=== PATIENT | female | born 2000 | race Caucasian/White ===

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

== ENCOUNTER → 2022-01-03 | Outpatient (CLI) | payer BC ==
--- NOTE | 2022-01-03 09:29 | USB ---
Reason for Exam: Clinical finding. Indicated Problems: Palpable abnormality of the left side. Findings: The whole breast of the left breast, the axilla of the left breast and the retroareolar of the left breast were scanned. Finding 1: Lymph Nodes - Intramammary findings. Laterality: Left. Size 18 x 5 x 17 mm. Region: Axilla. Finding 2: Lymph Nodes - Intramammary findings. Laterality: Left. Size 24 x 11 x 17 mm. Region: Axilla. . No solid or cystic lesion is seen within the breast. No duct ectasia. A couple mildly enlarged lymph nodes within the left axilla are noted. These demonstrate hyperemia with cortical thickening up to 6 mm. Overall Assessment: Probably benign, BI-RAD 3 Management: Clinical Correlation Diagnostic Breast Ultrasound of the left breast in 3 months. The thickened and mildly enlarged left axillary lymph nodes are probably reactive/post inflammatory. Clinical follow-up recommended to ensure resolution. Ultrasound follow-up in 3 months. If the lymph nodes persist or enlarge, tissue sampling can be considered.
== END | disposition home or self-care (01) ==
LOC: RADUSWWP 08:36
PROVIDERS: ATTEND Family Medicine
DX: N63.20 Unspecified lump in the left breast, unspecified quadrant (principal); R59.0 Localized enlarged lymph nodes

== ENCOUNTER 2022-04-15 15:27 | Emergency (ER) | payer BC, OTHER ==
[2022-04-15 15:35] VITALS: BP 104/67; PULSE 111; RESP 20; TEMP 97.6
--- NOTE | 2022-04-15 16:06 | ED ---
Recheck HPI - General Chief Complaint: Recheck/Abnormal Lab/Rx Stated Complaint: clogged feeding tube Time Seen by Provider: 04/15/22 15:50 Source: patient, RN notes reviewed, old records reviewed Mode of arrival: ambulatory Limitations: no limitations - History of Present Illness Initial Comments: This is a cachectic 22-year-old female, alert and oriented 4, presents to the emergency room with family complaining of a clogged feeding tube since 8 AM this morning. They have tried hot water and Coca-Cola with no relief. She denies any fevers, no nausea vomiting or diarrhea. No abdominal pain. No difficulty breathing. 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 She is on lung transplant list. She does go to the [facility] every 6-8 weeks which is where her feeding tube was placed. She is due to go back May 01. She is taking oral food and fluids. Feeding tube was placed for supplemental caloric intake. -: hour(s) (8) Initial Visit For: other (Clogged coretrak feeding tube) Associated Symptoms: none - Related Data Home Medications Medication Instructions Recorded Confirmed Digoxin [Lanoxin] 125 mcg PO DAILY 09/25/15 07/27/21 Veletri 74 ml IV CONTINUOUS 05/11/19 07/27/21 Bosentan 125 mg PO BID 04/05/20 07/27/21 tadalafiL [Alyq] 40 mg PO DAILY 04/05/20 07/27/21 Ferrous Sulfate [Feosol] 325 mg PO BID 04/06/20 07/27/21 Cyproheptadine [Cyproheptadine HCl] 4 mg PO BID 06/29/21 07/27/21 Furosemide [Lasix] 40 mg PO DIRECTED 06/29/21 07/27/21 Furosemide [Lasix] 40 mg PO DAILY 06/29/21 07/27/21 Pantoprazole [Protonix] 40 mg PO BID 06/29/21 07/27/21 acetaZOLAMIDE [Diamox] 500 mg PO BID 06/29/21 07/27/21 Ondansetron Odt [Zofran Odt] 4 mg PO Q8H PRN 07/27/21 07/27/21 Spironolactone 100 mg PO DAILY 07/27/21 07/27/21 Allergies Allergy/AdvReac Type Severity Reaction Status Date / Time chlorhexidine Allergy Unknown Verified 04/15/22 15:35 Sulfa (Sulfonamide Allergy Rash/Hives Verified 04/15/22 15:35 Antibiotics) sulfamethoxazole Allergy Rash/Hives Verified 04/15/22 15:35 [From Bactrim] trimethoprim [From Bactrim] Allergy Rash/Hives Verified 04/15/22 15:35 Review of Systems ROS Statement: Those systems with pertinent positive or pertinent negative responses have been documented in the HPI. ROS Other: All systems not noted in ROS Statement are negative. Past Medical History Past Medical History: Hypertension Additional Past Medical History / Comment(s): Idiopathic pulmonary arterial hypertension, juvenile rheumatoid arthritis, history of methotrexate use, chronic hypoxic respiratory failure, chronic anticoagulation, History of Any Multi-Drug Resistant Organisms: None Reported Past Surgical History: Heart Catheterization Additional Past Surgical History / Comment(s): heart cath, place in [place] in December of 2017 mcgarry shunt, left chest wall center line, Past Anesthesia/Blood Transfusion Reactions: Postoperative Nausea & Vomiting (PONV) Past Psychological History: No Psychological Hx Reported Smoking Status: Never smoker Past Alcohol Use History: None Reported Past Drug Use History: None Reported - Past Family History Father Family Medical History: Hypertension Additional Family Medical History / Comment(s): grandpa- had a CABG Mother Additional Family Medical History / Comment(s): ITP blood disorder General Exam Limitations: no limitations General appearance: alert, in no apparent distress Head exam: Present: atraumatic Eye exam: Absent: scleral icterus, conjunctival injection ENT exam: Present: mucous membranes moist, other (Cortrak feeding tube left nostril) Neck exam: Present: full ROM. Absent: tenderness, meningismus Respiratory exam: Absent: respiratory distress, accessory muscle use Cardiovascular Exam: Present: tachycardia GI/Abdominal exam: Present: distended. Absent: tenderness, guarding, rebound Neurological exam: Present: alert, oriented X3 Psychiatric exam: Present: normal affect, normal mood Skin exam: Present: warm, dry. Absent: cyanosis, diaphoretic Course Vital Signs 04/15/22 15:31 Temperature 97.6 F Pulse Rate 111 H Respiratory 20 Rate Blood Pressure 104/67 O2 Sat by Pulse 95 Oximetry - Reevaluation(s) Reevaluation #1: 04/15/22 17:26 I did speak with [facility] request of the patient and Dr. Ocampo and they are unable to accommodate replacement of her cortrak feeding tube. Time: 17:26 Medical Decision Making - Medical Decision Making Patient has a history of idiopathic pulmonary arterial hypertension and juvenile rheumatoid arthritis, she had a mcgarry shunt placed for pulmonary hypertension. She is a patient at the [facility] where they placed a Cortrak enteral feeding tube left nostril to improve nutrition and caloric intake. Her tube has been clogged since 8:00 this morning and they have been unable to flush the tube. Attempts to flush the tube in the emergency room were unsuccessful. X-ray shows tube coiled within the stomach or within the duodenum. I did speak with Dr. Ocampo who recommended contacting [facility] to see if they could accommodate patient for a new tube placement. I did contact [facility] who states that they would recommend an NG tube placement if patient needs the tube and follow-up with [facility]. She was given the option to have the tube removed since she is taking oral foods and fluids. After much discussion patient and mother decided to have the feeding tube removed. Tube was removed without any complications. She was offered a NGT and declined at this time Patient will be discharged home and directed to follow up with her primary care doctor at [facility] tomorrow morning. Case discussed with Dr. Layton Disposition Clinical Impression: Clogged feeding tube Disposition: HOME SELF-CARE Condition: Good Additional Instructions: Follow-up with [facility] and primary care doctor tomorrow regarding replacement of your feeding tube. Return to emergency room with any new or concerning symptoms. Is patient prescribed a controlled substance at d/c from ED?: No Referrals: Jose C Lunsford [Primary Care Provider] - 1-2 days Time of Disposition: 17:29
--- NOTE | 2022-04-15 16:26 | XR ---
EXAMINATION TYPE: XR KUB DATE OF EXAM: 04/15/2022 COMPARISON: 07/27/2021 HISTORY: Tube placement TECHNIQUE: Single supine KUB image of the abdomen is obtained FINDINGS: NG tube is noted with its distal tip overlying the left midabdomen. This could be coiled within the s tomach or reside within the duodenum. No convincing evidence for pneumoperitoneum. There is evidence of splenomegaly. Bird's nest filter is unchanged from prior study. No unusual calcifications. The lung bases are clear. The osseous structures are intact. IMPRESSION: 1. NG tube as noted. Bowel gas pattern is nonspecific.
== END 2022-04-15 17:50 | disposition home or self-care (01) ==
LOC: EC 15:27
DX: K94.23 Gastrostomy malfunction (principal); I10 Essential (primary) hypertension; Z88.2 Allergy status to sulfonamides; Z88.8 Allergy status to other drugs, medicaments and biological substances; Z79.899 Other long term (current) drug therapy
CPT/HCPCS: 74018; 99282; 99283

== ENCOUNTER → 2022-08-06 | Outpatient (CLI) | payer OTHER ==
[2022-08-06 18:51] LABS: African American GFR (CKD) 143.6 (60.0-200.0); Albumin 4.9 g/dL (3.8-4.9); Albumin/Globulin Ratio 2.25 (1.60-3.17); Anion Gap 12.6 mmol/L (10.00-18.00); BUN/Creat Ratio 49.86 Ratio (12.00-20.00); Blood Urea Nitrogen 35.1 mg/dL (9.0-27.0); Calcium 9.8 mg/dL (8.7-10.3); Globulin 2.2 g/dL (1.6-3.3); Non-African American GFR(CKD) 123.9 (60.0-200.0); Potassium 3.6 mmol/L (3.5-5.5); Total Bilirubin 0.4 mg/dL (0.30-1.20); Total Protein 7.1 g/dL (6.2-8.2)
== END | disposition home or self-care (01) ==
LOC: LABWHC1 11:37
PROVIDERS: ATTEND Clinical Nurse Specialist Adult Health
DX: I50.810 Right heart failure, unspecified (principal); I27.0 Primary pulmonary hypertension
CPT/HCPCS: 36415; 80053

== ENCOUNTER → 2022-08-29 | Outpatient (CLI) | payer BC, OTHER ==
[2022-08-29 23:32] LABS: Basophils # (A) 0.07 X 10*3/uL (0.00-0.10); Basophils % (A) 1.3 %; Eosinophils # (A) 0.04 X 10*3/uL (0.04-0.35); Eosinophils % (A) 0.8 %; HCT 50.4 % (37.2-46.3); HGB 15.3 g/dL (12.0-15.0); Immature Grans, Automated 0.6 %; Lymphocytes # (A) 0.86 X 10*3/uL (0.90-5.00); Lymphocytes % (A) 16.2 %; MCH 26.7 pg (27.0-32.0); MCHC 30.4 g/dL (32.0-37.0); MCV 88.1 fL (80.0-97.0); Mean Platelet Volume 10.5 fL (9.5-12.2); Monocytes # (A) 0.24 X 10*3/uL (0.20-1.00); Monocytes % (A) 4.5 %; NRBC Per 100 WBC 0 /100 WBCS (0.0-0.0); Neutrophils # (A) 4.07 X 10*3/uL (1.80-7.70); Neutrophils % (A) 76.6 %; Platelet Count 81 X 10*3/uL (140-440); RBC 5.72 X 10*6/uL (4.10-5.20); RDW 17.4 % (11.5-14.5); WBC 5.31 X 10*3/uL (4.50-10.00)
[2022-08-29 23:33] LABS: Anisocytosis (M) 2+; Elliptocytes 2+
== END | disposition home or self-care (01) ==
LOC: LABWHC1 14:00
PROVIDERS: ATTEND Clinical Nurse Specialist Adult Health
DX: I27.21 Secondary pulmonary arterial hypertension (principal); R06.02 Shortness of breath
CPT/HCPCS: 36415; 85025

== ENCOUNTER → 2023-03-06 | Outpatient (CLI) | payer BC ==
--- NOTE | 2023-03-06 16:02 | US ---
EXAMINATION TYPE: US venous doppler duplex LE RT DATE OF EXAM: 03/06/2023 3:55 PM COMPARISON: NONE CLINICAL INDICATION: Female, 23 years old with history of M79.604 PAIN IN RIGHT LEG; Right calf pain. No injury. No swelling. SIDE PERFORMED: Right TECHNIQUE: The lower extremity deep venous system is examined utilizing real time linear array sonog adam with graded compression, doppler sonography and color-flow sonography. VESSELS IMAGED: Common Femoral Vein Deep Femoral Vein Greater Saphenous Vein * Femoral Vein Popliteal Vein Small Saphenous Vein * Proximal Calf Veins (* superficial vessels) Grayscale, color doppler, spectral doppler imaging performed of the deep veins of the right lower ext remity. There is normal flow, compressibility, vascular waveforms. Right Leg: Negative for DVT IMPRESSION: No ultrasound evidence for deep venous thrombosis of the right lower extremity.
== END | disposition home or self-care (01) ==
LOC: RADUSWWP 15:31
PROVIDERS: ATTEND Clinical Nurse Specialist Adult Health
DX: M79.604 Pain in right leg (principal)

== ENCOUNTER 2023-12-07 19:44 | Emergency (ER) | payer BC ==
[2023-12-07] MEDS: SODIUM CHLORIDE 0.9% 250 ML IV SCH (20:32)
[2023-12-07 20:42] LABS: VBG PH 7.34 (7.31-7.41)
--- NOTE | 2023-12-07 20:44 | ED ---
General Adult HPI - General Chief complaint: Nausea/Vomiting/Diarrhea Stated complaint: Pulmonary Hypertension, Vomiting Time Seen by Provider: 12/07/23 20:03 Source: family, RN notes reviewed, old records reviewed Mode of arrival: wheelchair Limitations: no limitations - History of Present Illness Initial comments: 23-year-old female with pulmonary hypertension who follows at [facility] presenting with nausea vomiting and diarrhea. Patient is on multiple medications including continuous infusion of Ruba for pulmonary hypertension. She is on digoxin, hydrocortisone, Lasix, spironolactone. Patient had gone out with friends yesterday evening had 1 glass of wine and 3 shots of alcohol. She developed symptoms over the past 12 hours including 4 total episodes of vomiting and 4 episodes of diarrhea. Mother had been monitoring blood pressure at home and had some lower than normal readings. Heart rate was 140 at home. Mother had given an additional dose of hydrocortisone at home. - Related Data Home Medications Medication Instructions Recorded Confirmed Digoxin [Lanoxin] 125 mcg PO DAILY 09/25/15 07/27/21 Veletri 74 ml IV CONTINUOUS 05/11/19 07/27/21 Bosentan 125 mg PO BID 04/05/20 07/27/21 tadalafiL [Alyq] 40 mg PO DAILY 04/05/20 07/27/21 Ferrous Sulfate [Feosol] 325 mg PO BID 04/06/20 07/27/21 Cyproheptadine [Cyproheptadine HCl] 4 mg PO BID 06/29/21 07/27/21 Furosemide [Lasix] 40 mg PO DIRECTED 06/29/21 07/27/21 Furosemide [Lasix] 40 mg PO DAILY 06/29/21 07/27/21 Pantoprazole [Protonix] 40 mg PO BID 06/29/21 07/27/21 acetaZOLAMIDE [Diamox] 500 mg PO BID 06/29/21 07/27/21 Ondansetron Odt [Zofran Odt] 4 mg PO Q8H PRN 07/27/21 07/27/21 Spironolactone 100 mg PO DAILY 07/27/21 07/27/21 Allergies Allergy/AdvReac Type Severity Reaction Status Date / Time chlorhexidine Allergy Unknown Verified 12/07/23 19:48 Sulfa (Sulfonamide Allergy Rash/Hives Verified 12/07/23 19:48 Antibiotics) sulfamethoxazole Allergy Rash/Hives Verified 12/07/23 19:48 [From Bactrim] trimethoprim [From Bactrim] Allergy Rash/Hives Verified 12/07/23 19:48 Review of Systems ROS Statement: Those systems with pertinent positive or pertinent negative responses have been documented in the HPI. ROS Other: All systems not noted in ROS Statement are negative. Past Medical History Past Medical History: Hypertension Additional Past Medical History / Comment(s): Idiopathic pulmonary arterial hypertension, juvenile rheumatoid arthritis, history of methotrexate use, chronic hypoxic respiratory failure, chronic anticoagulation, History of Any Multi-Drug Resistant Organisms: None Reported Past Surgical History: Heart Catheterization Additional Past Surgical History / Comment(s): heart cath, place in [place] in December of 2017 mcgarry shunt, left chest wall center line, Past Anesthesia/Blood Transfusion Reactions: Postoperative Nausea & Vomiting (PONV) Past Psychological History: No Psychological Hx Reported Smoking Status: Never smoker Past Alcohol Use History: Rare Past Drug Use History: None Reported - Past Family History Father Family Medical History: Hypertension Additional Family Medical History / Comment(s): grandpa- had a CABG Mother Additional Family Medical History / Comment(s): ITP blood disorder General Exam Limitations: no limitations General appearance: lethargic Head exam: Present: atraumatic, normocephalic Eye exam: Present: normal appearance, PERRL ENT exam: Present: mucous membranes dry Neck exam: Present: normal inspection. Absent: tenderness, meningismus Respiratory exam: Present: decreased breath sounds, other (Mild tachypnea). Absent: respiratory distress, rales, rhonchi Cardiovascular Exam: Present: normal rhythm, tachycardia GI/Abdominal exam: Present: soft. Absent: distended, tenderness, guarding, rebound Extremities exam: Present: normal inspection, normal capillary refill. Absent: pedal edema Neurological exam: Present: alert. Absent: motor sensory deficit Skin exam: Present: warm, dry, intact. Absent: cyanosis, diaphoretic Course Vital Signs 12/07/23 12/07/23 12/07/23 19:46 20:12 21:15 Temperature 100.2 F H Pulse Rate 134 H 134 H 134 H Respiratory 20 16 30 H Rate Blood Pressure 87/54 93/54 80/48 O2 Sat by Pulse 95 100 94 L Oximetry 12/07/23 12/07/23 12/07/23 21:52 22:00 22:28 Temperature 99.2 F Pulse Rate 133 H 122 H 128 H Respiratory 25 H 24 28 H Rate Blood Pressure 74/51 101/55 98/54 O2 Sat by Pulse 95 95 90 L Oximetry 12/07/23 12/07/23 12/08/23 23:00 23:51 00:15 Temperature 99.0 F Pulse Rate 130 H 126 H 124 H Respiratory 33 H 26 H 30 H Rate Blood Pressure 92/54 99/51 81/47 O2 Sat by Pulse 92 L 95 96 Oximetry 12/08/23 01:30 Temperature Pulse Rate 130 H Respiratory 26 H Rate Blood Pressure 101/55 O2 Sat by Pulse 92 L Oximetry - Reevaluation(s) Reevaluation #1: 12/07/23 2100 I was able to discuss care of this patient with the support merchandiser from [facility] Dr. Woodard who recommends very careful fluid resuscitation, and the cardiothoracic surgeon Dr. Mondragon, who does recommend 500-1,000 cc bolus normal saline. Reevaluation #2: 12/08/23 00:10 Patient accepted to [facility] awaiting bed and transfer. Reevaluation #3: 12/08/23 02:09 Repeat BMP showing improved potassium of 4.0, sodium 128, and calcium is now 6.9 will be given calcium by [facility]. Medical Decision Making - Medical Decision Making Was pt. sent in by a medical professional or institution (, PA, ROD TAPE OPERATOR, urgent care, hospital, or snf...) When possible be specific @ -No Did you speak to anyone other than the patient for history (EMS, parent, family, police, friend...)? What history was obtained from this source @ -Mother and father are able to give a detailed history. Did you review nursing and triage notes (agree or disagree)? Why? @ -I reviewed and agree with nursing and triage notes Were old charts reviewed (outside hosp., previous admission, EMS record, old EKG, old radiological studies, urgent care reports/EKG's, snf records)? Report findings @ -No old charts were reviewed Differential Diagnosis nausea vomiting, dehydration, upper respiratory infection, pneumonia, pulmonary edema. EKG interpreted by me (3pts min.). @ -[Sinus tachycardia, incomplete right bundle branch block, right ventricular hypertrophy, rate of 130, IN interval 140, QRS duration 97, QTc [address] segment changes X-rays interpreted by me (1pt min.). @2 view chest x-ray showing cardiomegaly which is improved from prior, she has some persistent airspace opacities which are consistent when compared to prior x-rays. No consolidated pneumonia, no pneumothorax. CT interpreted by me (1pt min.). @ -None done U/S interpreted by me (1pt. min.). @ -None done What testing was considered but not performed or refused? (CT, X-rays, U/S, labs)? Why? @ -None What meds were considered but not given or refused? Why? @ -None Did you discuss the management of the patient with other professionals (professionals i.e. , PA, ROD TAPE OPERATOR, lab, RT, psych nurse, social service liaison, intellectual property lawyer, teacher, loan service officer, caseworker protective services)? Give summary @ -Case discussed with the support merchandiser from [facility] as well as the patient's cardiothoracic surgeon DR. Mondragon, who does recommend fluid resuscitation and transfer if needed. I did discuss case with the transfer team from [facility], patient has been accepted to the MICU, accepting physician Dr. Deal. Was smoking cessation discussed for >3mins.? @ -No Was critical care preformed (if so, how long)? @ -[yes 95 min Were there social determinants of health that impacted care today? How? (Homelessness, low income, unemployed, alcoholism, drug addiction, transportation, low edu. Level, literacy, decrease access to med. care, long term, rehab)? @ -No Was there de-escalation of care discussed even if they declined (Discuss DNR or withdrawal of care, Hospice)? DNR status @ -No What co-morbidities impacted this encounter? (DM, HTN, Smoking, COPD, CAD, Cancer, CVA, ARF, Chemo, Hep., AIDS, mental health diagnosis, sleep apnea, morbid obesity)? @ -Pulmonary hypertension Was patient admitted / discharged? Hospital course, mention meds given and route, prescriptions, significant lab abnormalities, going to OR and other pertinent info. @ -23-year-old female history of pulmonary hypertension presenting with nausea vomiting diarrhea. Patient is tachycardic, tachypneic, hypotensive upon arrival. Initial oxygenation is stable without need for supplemental oxygen. I did contact the [facility] at the onset of care regarding the management of this patient. Patient is given normal saline boluses in 250 cc increments. She is given oral and IV potassium replacement for potassium of 3.0. She has no further vomiting while in the emergency department. She does have a increased need of oxygen requiring 2 L through nasal cannula for oxygenation around 89%. Chest x-ray shows cardiomegaly with some chronic appearing airspace opacities similar to prior, no rani CHF. Patient's white blood cell count is normal. Her hemoglobin is 19.2 with a baseline around 16. She has a sodium 132, potassium 3.0, creatinine 1.53 with a baseline around 1. She has normal lactic. Urinalysis has been ordered and has not been obtained currently. Given the complexity of her care and only slightly improved heart rate and blood pressure with fluids and need for supplemental oxygen I do feel this patient will be best served by transfer to [facility] where she receives her care. Patient transferred by flight team to [facility] MICU. Undiagnosed new problem with uncertain prognosis? @ -No Drug Therapy requiring intensive monitoring for toxicity (Heparin, Nitro, Insulin, Cardizem)? @ -No Were any procedures done? @ -No Diagnosis/symptom? @ -[Hypovolemia, hypotension, pulmonary hypertension, hypokalemia, NARCISA Acute, or Chronic, or Acute on Chronic? @Acute Uncomplicated (without systemic symptoms) or Complicated (systemic symptoms)? @ -Complicated Side effects of treatment? @ -No Exacerbation, Progression, or Severe Exacerbation? @ -No Poses a threat to life or bodily function? How? (Chest pain, USA, MT, pneumonia, PE, COPD, DKA, ARF, appy, cholecystitis, CVA, Diverticulitis, Homicidal, Suicidal, threat to staff... and all critical care pts) @ -Yes, hypovolemic shock, cardiogenic shock - Lab Data Result diagrams: 12/08/23 01:35 12/08/23 01:35 Lab Results 12/07/23 12/07/23 12/07/23 Range/Units 20:00 20:00 20:00 WBC 6.1 (3.8-10.6) k/uL RBC 6.49 H (3.80-5.40) m/uL Hgb 19.2 H* (11.4-16.0) gm/dL Hct 55.6 H (34.0-46.0) % MCV 85.7 (80.0-100.0) fL MCH 29.5 (25.0-35.0) pg MCHC 34.5 (31.0-37.0) g/dL RDW 17.5 H (11.5-15.5) % Plt Count 44 L (150-450) k/uL MPV 10.1 Neutrophils % % Neutrophils % (Manual) 54 % Band Neuts % (Manual) 16 % Lymphocytes % % Lymphocytes % (Manual) 27 % Monocytes % % Monocytes % (Manual) 3 % Eosinophils % % Eosinophils % (Manual) 1 % Basophils % % Basophils % (Manual) 1 % Neutrophils # (1.3-7.7) k/uL Neutrophils # (Manual) 4.20 (1.3-7.7) k/uL Lymphocytes # (1.0-4.8) k/uL Lymphocytes # (Manual) 1.65 (1.0-4.8) k/uL Monocytes # (0-1.0) k/uL Monocytes # (Manual) 0.18 (0-1.0) k/uL Eosinophils # (0-0.7) k/uL Eosinophils # (Manual) 0.06 (0-0.7) k/uL Basophils # (0-0.2) k/uL Basophils # (Manual) 0.06 (0-0.2) k/uL Nucleated RBCs 4 H (0-0) /100 WBC Manual Slide Review Performed Anisocytosis Slight VBG pH (7.31-7.41) VBG pCO2 (37-51) mmHg VBG HCO3 (24-28) mmol/L Sodium 132 L (137-145) mmol/L Potassium 3.0 L (3.5-5.1) mmol/L Chloride 97 L (98-107) mmol/L Carbon Dioxide 22 (22-30) mmol/L Anion Gap 13 mmol/L BUN 28 H (7-17) mg/dL Creatinine 1.53 H (0.52-1.04) mg/dL Est GFR (CKD-EPI)AfAm 56 (>60 ml/min/1.73 sqM) Est GFR (CKD-EPI)NonAf 48 (>60 ml/min/1.73 sqM) Glucose 84 (74-99) mg/dL Plasma Lactic Acid Bruno 1.3 (0.7-2.0) mmol/L Calcium 7.6 L (8.4-10.2) mg/dL Magnesium 1.6 (1.6-2.3) mg/dL Total Bilirubin 1.0 (0.2-1.3) mg/dL AST 28 (14-36) U/L ALT 15 (4-34) U/L Alkaline Phosphatase 93 (38-126) U/L Total Protein 7.3 (6.3-8.2) g/dL Albumin 4.5 (3.5-5.0) g/dL Influenza Type A (PCR) (Not Detectd) Influenza Type B (PCR) (Not Detectd) RSV (PCR) (Not Detectd) SARS-CoV-2 (PCR) (Not Detectd) 12/07/23 12/07/23 12/08/23 Range/Units 20:15 20:15 01:35 WBC 7.8 (3.8-10.6) k/uL RBC 6.07 H (3.80-5.40) m/uL Hgb 16.6 H (11.4-16.0) gm/dL Hct 52.0 H (34.0-46.0) % MCV 85.7 (80.0-100.0) fL MCH 27.3 (25.0-35.0) pg MCHC 31.8 (31.0-37.0) g/dL RDW 17.2 H (11.5-15.5) % Plt Count 30 L (150-450) k/uL MPV 9.6 Neutrophils % 85 % Neutrophils % (Manual) % Band Neuts % (Manual) % Lymphocytes % 10 % Lymphocytes % (Manual) % Monocytes % 4 % Monocytes % (Manual) % Eosinophils % 0 % Eosinophils % (Manual) % Basophils % 1 % Basophils % (Manual) % Neutrophils # 6.6 (1.3-7.7) k/uL Neutrophils # (Manual) (1.3-7.7) k/uL Lymphocytes # 0.7 L (1.0-4.8) k/uL Lymphocytes # (Manual) (1.0-4.8) k/uL Monocytes # 0.3 (0-1.0) k/uL Monocytes # (Manual) (0-1.0) k/uL Eosinophils # 0.0 (0-0.7) k/uL Eosinophils # (Manual) (0-0.7) k/uL Basophils # 0.1 (0-0.2) k/uL Basophils # (Manual) (0-0.2) k/uL Nucleated RBCs (0-0) /100 WBC Manual Slide Review Anisocytosis Slight VBG pH 7.34 (7.31-7.41) VBG pCO2 46 (37-51) mmHg VBG HCO3 25 (24-28) mmol/L Sodium (137-145) mmol/L Potassium (3.5-5.1) mmol/L Chloride (98-107) mmol/L Carbon Dioxide (22-30) mmol/L Anion Gap mmol/L BUN (7-17) mg/dL Creatinine (0.52-1.04) mg/dL Est GFR (CKD-EPI)AfAm (>60 ml/min/1.73 sqM) Est GFR (CKD-EPI)NonAf (>60 ml/min/1.73 sqM) Glucose (74-99) mg/dL Plasma Lactic Acid Bruno (0.7-2.0) mmol/L Calcium (8.4-10.2) mg/dL Magnesium (1.6-2.3) mg/dL Total Bilirubin (0.2-1.3) mg/dL AST (14-36) U/L ALT (4-34) U/L Alkaline Phosphatase (38-126) U/L Total Protein (6.3-8.2) g/dL Albumin (3.5-5.0) g/dL Influenza Type A (PCR) Not Detected (Not Detectd) Influenza Type B (PCR) Not Detected (Not Detectd) RSV (PCR) Not Detected (Not Detectd) SARS-CoV-2 (PCR) Not Detected (Not Detectd) 12/08/23 Range/Units 01:35 WBC (3.8-10.6) k/uL RBC (3.80-5.40) m/uL Hgb (11.4-16.0) gm/dL Hct (34.0-46.0) % MCV (80.0-100.0) fL MCH (25.0-35.0) pg MCHC (31.0-37.0) g/dL RDW (11.5-15.5) % Plt Count (150-450) k/uL MPV Neutrophils % % Neutrophils % (Manual) % Band Neuts % (Manual) % Lymphocytes % % Lymphocytes % (Manual) % Monocytes % % Monocytes % (Manual) % Eosinophils % % Eosinophils % (Manual) % Basophils % % Basophils % (Manual) % Neutrophils # (1.3-7.7) k/uL Neutrophils # (Manual) (1.3-7.7) k/uL Lymphocytes # (1.0-4.8) k/uL Lymphocytes # (Manual) (1.0-4.8) k/uL Monocytes # (0-1.0) k/uL Monocytes # (Manual) (0-1.0) k/uL Eosinophils # (0-0.7) k/uL Eosinophils # (Manual) (0-0.7) k/uL Basophils # (0-0.2) k/uL Basophils # (Manual) (0-0.2) k/uL Nucleated RBCs (0-0) /100 WBC Manual Slide Review Anisocytosis VBG pH (7.31-7.41) VBG pCO2 (37-51) mmHg VBG HCO3 (24-28) mmol/L Sodium 128 L (137-145) mmol/L Potassium 4.0 (3.5-5.1) mmol/L Chloride 101 (98-107) mmol/L Carbon Dioxide 14 L (22-30) mmol/L Anion Gap 13 mmol/L BUN 31 H (7-17) mg/dL Creatinine 1.35 H (0.52-1.04) mg/dL Est GFR (CKD-EPI)AfAm 65 (>60 ml/min/1.73 sqM) Est GFR (CKD-EPI)NonAf 56 (>60 ml/min/1.73 sqM) Glucose 97 (74-99) mg/dL Plasma Lactic Acid Bruno (0.7-2.0) mmol/L Calcium 6.9 L (8.4-10.2) mg/dL Magnesium (1.6-2.3) mg/dL Total Bilirubin (0.2-1.3) mg/dL AST (14-36) U/L ALT (4-34) U/L Alkaline Phosphatase (38-126) U/L Total Protein (6.3-8.2) g/dL Albumin (3.5-5.0) g/dL Influenza Type A (PCR) (Not Detectd) Influenza Type B (PCR) (Not Detectd) RSV (PCR) (Not Detectd) SARS-CoV-2 (PCR) (Not Detectd) Critical Care Time Critical Care Time: Yes Total Critical Care Time: 95 Disposition Clinical Impression: Pulmonary artery hypertension, Hypoxia, Hypovolemia, NARCISA (acute kidney injury), Hypokalemia Disposition: OTHER INSTITUTION NOT DEFINED Condition: Serious Is patient prescribed a controlled substance at d/c from ED?: No Referrals: Jose Santoyo MD [Primary Care Provider] - 1-2 days Time of Disposition: 23:00 - Out of Hospital Transfer - Req. Specs Out of Hospital Transfer - Requested Specifics: Medical ICU (Transfer to [facility])
[2023-12-07 20:52] LABS: Anisocytosis Slight; MCH 29.5 pg (25.0-35.0); MCHC 34.5 g/dL (31.0-37.0); MCV 85.7 fL (80.0-100.0); Mean Platelet Volume 10.1; RBC 6.49 m/uL (3.80-5.40); RDW 17.5 % (11.5-15.5)
[2023-12-07 21:01] LABS: HCT 55.6 % (34.0-46.0); HGB 19.2 gm/dL (11.4-16.0)
[2023-12-07 21:10] LABS: ALT 15 U/L (4-34); AST 28 U/L (14-36); African American GFR (CKD) 56 (>60 ml/min/1.73 sqM); Albumin 4.5 g/dL (3.5-5.0); Alkaline Phosphatase 93 U/L (38-126); Anion Gap 13 mmol/L; Blood Urea Nitrogen 28 mg/dL (7-17); Calcium 7.6 mg/dL (8.4-10.2); Carbon Dioxide 22 mmol/L (22-30); Chloride 97 mmol/L (98-107); Glucose 84 mg/dL (74-99); Magnesium 1.6 mg/dL (1.6-2.3); Non-African American GFR(CKD) 48 (>60 ml/min/1.73 sqM); Sodium 132 mmol/L (137-145); Total Protein 7.3 g/dL (6.3-8.2)
[2023-12-07] MEDS: POTASSIUM CHLORIDE ER 20 MEQ TAB.ER PO STA (21:50)
[2023-12-07 22:23] LABS: Band Neutrophils % 16 %; Basophils # (M) 0.06 k/uL (0-0.2); Eosinophils # (M) 0.06 k/uL (0-0.7); Neutrophils % (M) 54 %; Nucleated Red Blood Cells 4 /100 WBC (0-0); Total Cells Counted 200
[2023-12-07 22:37] LABS: Lymphocytes # (M) 1.65 k/uL (1.0-4.8); Monocytes # (M) 0.18 k/uL (0-1.0); WBC 6.1 k/uL (3.8-10.6)
[2023-12-07 23:02] LABS: Platelet Count 44 k/uL (150-450)
[2023-12-07] MEDS: POTASSIUM CHLORIDE 10 MEQ in WATER FOR INJECTION 1 100ML.BAG IVPB SCH (23:21)
--- NOTE | 2023-12-07 23:21 | XR ---
EXAM: XR Chest, 2 Views CLINICAL HISTORY: ITS.REASON XR Reason: fever/pulm HTN TECHNIQUE: Frontal and lateral views of the chest. COMPARISON: CXR July 27, 2021. FINDINGS: Lungs: Unremarkable. No consolidation. Pleural space: Unremarkable. No pneumothorax. Heart: Cardiomegaly. Mediastinum: Unremarkable. Normal mediastinal contour. Bones/joints: Unremarkable. No acute fracture. Tubes, lines and devices: Stable stent device projecting over the descending aorta. Atrial septal occluder device. RIGHT central venous line terminates in the RIGHT atrium. IMPRESSION: RIGHT central venous line terminates in the RIGHT atrium.
[2023-12-08 00:32] VITALS: RESP 26
[2023-12-08] MEDS: D5-0.9% NACL WITH KCL 20 MEQ/L 1,000 ML IV SCH (00:37)
[2023-12-08 01:59] LABS: Anisocytosis Slight; Basophils # (A) 0.1 k/uL (0-0.2); Basophils % (A) 1 %; Eosinophils % (A) 0 %; HGB 16.6 gm/dL (11.4-16.0); Lymphocytes # (A) 0.7 k/uL (1.0-4.8); Lymphocytes % (A) 10 %; MCH 27.3 pg (25.0-35.0); MCHC 31.8 g/dL (31.0-37.0); MCV 85.7 fL (80.0-100.0); Mean Platelet Volume 9.6; Monocytes # (A) 0.3 k/uL (0-1.0); Monocytes % (A) 4 %; Neutrophils # (A) 6.6 k/uL (1.3-7.7); Neutrophils % (A) 85 %; RBC 6.07 m/uL (3.80-5.40); RDW 17.2 % (11.5-15.5); WBC 7.8 k/uL (3.8-10.6)
[2023-12-08 02:01] LABS: Platelet Count 30 k/uL (150-450)
[2023-12-08 02:06] LABS: African American GFR (CKD) 65 (>60 ml/min/1.73 sqM); Anion Gap 13 mmol/L; Blood Urea Nitrogen 31 mg/dL (7-17); Calcium 6.9 mg/dL (8.4-10.2); Carbon Dioxide 14 mmol/L (22-30); Chloride 101 mmol/L (98-107); Glucose 97 mg/dL (74-99); Non-African American GFR(CKD) 56 (>60 ml/min/1.73 sqM); Sodium 128 mmol/L (137-145)
[2023-12-08 02:11] VITALS: BP 101/55; PULSE 130; TEMP 99
== END 2023-12-08 01:50 | disposition other institution (70) ==
LOC: EC 19:44
DX: E86.1 Hypovolemia (principal); E87.6 Hypokalemia; N17.9 Acute kidney failure, unspecified; I27.21 Secondary pulmonary arterial hypertension; I95.9 Hypotension, unspecified; I45.10 Unspecified right bundle-branch block; R09.02 Hypoxemia; Z11.52 Encounter for screening for COVID-19; Z88.1 Allergy status to other antibiotic agents; Z88.2 Allergy status to sulfonamides; Z88.8 Allergy status to other drugs, medicaments and biological substances
CPT/HCPCS: 99291; 96365; 96366; 36415 ×2; 93005; 80053; 80048; 82803; 83605; 83735; 85025 ×2; 87636; 71046; J3480

== ENCOUNTER → 2023-12-17 | Outpatient (CLI) | payer BC ==
[2023-12-18 03:38] LABS: ALT 12 U/L (8-44); AST 18 U/L (13-35); Albumin 4.3 g/dL (3.8-4.9); Albumin/Globulin Ratio 2.39 Ratio (1.60-3.17); Alkaline Phosphatase 76 U/L (41-126); Blood Urea Nitrogen 9.3 mg/dL (9.0-27.0); Calcium 8.6 mg/dL (8.7-10.3); Carbon Dioxide 22.4 mmol/L (21.6-31.8); Chloride 106 mmol/L (96-109); Globulin 1.8 g/dL (1.6-3.3); Glucose 90 mg/dL (70-110); Magnesium 2.3 mg/dL (1.5-2.4); NT-Pro-B-Type Natriuretic Pept 1749 pg/mL (0-125); Potassium 3.6 mmol/L (3.5-5.5); Sodium 142 mmol/L (135-145); Total Bilirubin 0.2 mg/dL (0.3-1.2); Total Protein 6.1 g/dL (6.2-8.2)
[2023-12-18 03:49] LABS: Basophils # (M) 0.05 X 10*3/uL (0.00-0.10); HCT 44.5 % (37.2-46.3); HGB 13.7 g/dL (12.0-15.0); Immature Platelet Fraction 11.2 % (1.1-6.1); Lymphocytes # (M) 1.51 X 10*3/uL (0.90-5.00); MCH 27.5 pg (27.0-32.0); MCHC 30.8 g/dL (32.0-37.0); MCV 89.4 FL (80.0-97.0); Monocytes # (M) 0.09 X 10*3/uL (0.20-1.00); NRBC Per 100 WBC 0.16 X 10*3/uL (0.00-0.01); Neutrophils % (M) 50 %; Nucleated Red Blood Cells 7 /100 WBCS; Platelet Count 30 X 10*3/uL (140-440); RBC 4.98 X 10*6/uL (4.10-5.20); RDW 19.2 % (11.5-14.5); WBC 4.73 X 10*3/uL (4.50-10.00)
[2023-12-18 03:50] LABS: Eosinophils # (M) 0 X 10*3/uL (0.04-0.35); Metamyelocytes % 10 % (0-0); Myelocytes % 5 % (0-0); Neutrophils # (M) 2.37 X 10*3/uL (1.80-7.70)
== END | disposition home or self-care (01) ==
LOC: LABWHC1 15:39
PROVIDERS: ATTEND Clinical Nurse Specialist Adult Health
DX: I27.21 Secondary pulmonary arterial hypertension (principal); R06.02 Shortness of breath
CPT/HCPCS: 36415; 80053; 83735; 83880; 85025

== ENCOUNTER → 2024-02-27 | Outpatient (CLI) | payer BC ==
[2024-02-27 13:05] LABS: Anisocytosis Slight; HCT 53.9 % (34.0-46.0); HGB 16.7 gm/dL (11.4-16.0); Hypochromasia Slight; MCH 26.9 pg (25.0-35.0); MCHC 30.9 g/dL (31.0-37.0); MCV 86.9 fL (80.0-100.0); Mean Platelet Volume 8.9; RDW 17.2 % (11.5-15.5)
[2024-02-27 13:36] LABS: Band Neutrophils % 1 %; Eosinophils # (M) 0.04 k/uL (0-0.7); Lymphocytes # (M) 1.28 k/uL (1.0-4.8); Metamyelocytes # (M) 0.04 k/uL (0); Metamyelocytes % 1 %; Monocytes # (M) 0.32 k/uL (0-1.0); Neutrophils % (M) 59 %; Nucleated Red Blood Cells 1 /100 WBC (0-0); Total Cells Counted 200
[2024-02-27 13:38] LABS: Platelet Count 62 k/uL (150-450)
== END | disposition home or self-care (01) ==
LOC: LABWHC1 10:26
PROVIDERS: ATTEND Clinical Nurse Specialist Adult Health
DX: I27.21 Secondary pulmonary arterial hypertension (principal)
CPT/HCPCS: 36415; 85025

== ENCOUNTER → 2024-03-09 | Outpatient (CLI) | payer BC ==
[2024-03-09 18:28] LABS: Estradiol <20.0 pg/mL
[2024-03-09 19:31] LABS: Follicle Stimulating Hormone 7.8 mIU/mL; Luteinizing Hormone 8.1 mIU/mL
[2024-03-09 20:39] LABS: ACTH <1.50 pg/mL (0.00-45.99)
== END | disposition home or self-care (01) ==
LOC: LABWHC1 09:59
DX: E27.49 Other adrenocortical insufficiency (principal); N91.1 Secondary amenorrhea
CPT/HCPCS: 36415; 82024; 82533; 82670; 83001; 83002; 84144